=== PATIENT | female | born 1995 | race Two or more races ===

== ENCOUNTER 2025-07-15 13:21 | Emergency (ER) | payer MEDICAID ==
[~2025-07-15] VITALS: Ht 154.9 cm; Wt 94.0 kg
--- NOTE | 2025-07-15 14:55 | ED.PDOC ---
Musculoskeletal HPI Comments 29-year-old female that presents to the ED for chief complaint of right ankle pain. Patient states that she has been having right ankle pain after twisting it flung getting out of bed. Patient states she twisted her ankle on Monday and states in resulted in pressure radiating to her leg and includes her foot. Patient states since the injury she has been unable to bend her foot up or down and has been having pain around the ankle in the Achilles area. The patient otherwise has a history of a small ankle fracture to the right ankle which occurred three years prior. Chief Complaint: Lower Extremity Time Seen by MD: 14:18 Reviewed Notes: Medications, Allergies Allergies: Coded Allergies: NO KNOWN ALLERGIES (Unverified , 07/15/25) Information Source: Patient Mode of Arrival: Ambulatory Brought in by: self Location: Right Extremity Location: Ankle Past Medical History PAST MEDICAL HISTORY: Denies Surgical History: Denies all surgeries DIRECTOR OF QUALITY IMPROVEMENT History: Denies all DIRECTOR OF QUAL[employer]OVEMENT Hx Family History Family History: Reviewed,noncontributory to illness Social History Smoker: Non-Smoker Alcohol: Denies ETOH Use Drugs: Denies Drug Use Lives In: Home Constitutional: denies: chills, diaphoresis, fatigue, fever, malaise, sweats, weakness, others EENTM: denies: blurred vision, double vision, ear bleeding, ear discharge, ear drainage, ear pain, ear ringing, eye pain, eye redness, hearing loss, mouth pa in, mouth swelling, nasal discharge, nose bleeding, nose congestion, nose pain, photophobia, tearing, throat pain, throat swelling, voice changes, others Respiratory: denies: cough, hemoptysis, orthopnea, SOB at rest, shortness of breath, SOB with excertion, stridor, wheezing, others Cardiovascular: denies: chest pain, dizzy spells, diaphoresis, Dyspnea on exertion, edema, irregular heart beat, left arm pain, lightheadedness, palpitations, PND, syncope, others Gastrointestinal: denies: abdomen distended, abdominal pain, blood streaked bowels, constipated, diarrhea, dysphagia, difficulty swallowing, hematemesis, melena, nausea, poor appetite, poor fluid intake, rectal bleeding, rectal pain, vomiting, others Genitourinary: denies: abnormal vagina bleeding, burning, dyspareunia, dysuria, flank pain, frequency, hematuria, incontinence, pain, , vagina discharge, urgency, others Neurological: denies: dizziness, fainting, headache, left sided numbness, left sided weakness, numbness, paresthesia, pre-existing deficit, right sided numbness, right sided weakness, seizure, speech problems, tingling, tremors, weakness, others Musculoskeletal: reports: joint pain, joint swelling; denies: back pain, gout, muscle pain, muscle stiffness, neck pain, others Integumetry: denies: bruises, change in color, change in hair/nails, dryness, laceration, lesions, lumps, rash, wounds, others Allergic/Immunocompromised: denies: Difficulty Healing, Frequent Infections, Hives, Itching, others Hematologic/Lymphatic: denies: anemia, blood clots, easy bleeding, easy bruising, swollen glands, others Endocrine: denies: excessive hunger, excessive sweating, excessive thirst, excessive urination, flushing, intolerance to cold, intolerance to heat, unexplained weight gain, unexplained weight loss, others Psychiatric: denies: anxiety, bipolar disorder, depression, hopeless, panic disorder, schizophrenia, sleepless, suicidal, others All Other Systems: Reviewed and Negative Physical Exam General Appearance: No Apparent Distress, Normal HEENT: Normal ENT Inspection, Pharynx Normal, TMs Normal Neck: Full Range of Motion, Non-Tender, Normal, Normal Inspection Respiratory: Chest Non-Tender, Lungs Clear, No Accessory Muscle Use, No Respiratory Distress, Normal Breath Sounds Cardiovascular: No Edema, No JVD, No Murmur, No Gallop, Normal Peripheral Pulses, Regular Rate/Rhythm Breast Exam: Deferred Gastrointestinal: No Organomegaly, Non Tender, No Pulsatile Mass, Normal Bowel Sounds, Soft Genitalia: Deferred Pelvic: Deferred Rectal: Deferred Extremities: Tender (Right foot and localized to the right ankle) Musculoskeletal : Apperance: Normal Neurologic: Alert, polymerization helper II-XII nml as Tested, No Motor Deficits, Normal Affect, Normal Mood, No Sensory Deficits Cerebellar Function: Normal Reflexes: Normal Skin: Dry, Normal Color, Warm Lymphatic: No Adenopathy Was a procedure done? Was a procedure done?: No Differential Diagnosis EXT Differential Diagnosis: Fracture, Sprain, Contusion, Strain, Neurovascular injury, Arthritis X-Ray, Labs, Meds, VS Vital Signs Date Time Temp Pulse Resp B/P (MAP) Pulse Ox O2 Delivery O2 Flow Rate FiO2 07/15/25 13:26 98.5 67 16 128/[address] [address] Ph: [phone] DIAGNOSTIC IMAGING Diagnostic Imaging Report : [id number] Signed PATIENT: MARIELY HERNANDEZ ACCT: [id number] UNIT: [id number] : 1995 LOC: ER ROOM / BED: / AGE / SEX: 29 / F ADM STATUS: REG ER SERVICE 20 ORDERING PHYSICIAN: TA YE BRIQUETTING MACHINE OPERATOR PROCEDURE(s): RFOOT - R FOOT 3 VIEW XRAY REASON: R/o fracture ORDER NUMBER(s): [id number], ACCESSION NUMBER(s): [id number] XY R FOOT 3 VIEW XRAY, INDICATION: R/o fracture TECHNICAL DATA: Frontal, oblique and lateral views were obtained of the right foot. COMPARISON: XY R FOOT 3 VIEW XRAY on DOS: 02/11/25 FINDINGS: No fracture is identified. Joint spaces are maintained. Alignment is anatomic. The hallux sesamoids appear normal. Soft tissues are within normal limits. IMPRESSION: No acute fracture or dislocation of the right foot. ATED BY: BENJAMIN VERMA MD DICTATED DATE/TIME: 07/15/251518 SIGNED BY: BENJAMIN VERMA MD SIGNED DATE/TIME: 07/15/251518 CC: [address] [address] Ph: [phone] DIAGNOSTIC IMAGING Diagnostic Imaging Report : [id number] Signed PATIENT: MARIELY HERNANDEZ ACCT: [id number] UNIT: [id number] : 1995 LOC: ER ROOM / BED: / AGE / SEX: 29 / F ADM STATUS: REG ER SERVICE 20 ORDERING PHYSICIAN: TA YE BRIQUETTING MACHINE OPERATOR PROCEDURE(s): RANKL - R ANKLE 3 VIEW REASON: R/o fracture ORDER NUMBER(s): [id number], ACCESSION NUMBER(s): [id number] CLINICAL INDICATION: R/o fracture TECHNIQUE: 3 radiographic views of the right ankle were obtained. Comparison: None FINDINGS/IMPRESSION: There is questionable small nondisplaced avulsion fracture from the tip of the distal lateral malleolus with associated mild ankle soft tissue edema. No dislocation. ATED BY: JEN BARRIOS DO DICTATED DATE/TIME: 07/15/251518 SIGNED BY: JEN BARRIOS DO SIGNED DATE/TIME: 07/15/251518 CC: X-Ray, Labs, Meds, VS Comment Patient arrives alert and oriented, ABC's intact, afebrile, vital signs stable, saturating well in room air Diagnostic imaging ordered by me and results interpreted by radiology : Right foot x-ray, IMPRESSION: No acute fracture or dislocation of the right foot. right ankle x-ray FINDINGS/IMPRESSION: There is questionable small nondisplaced avulsion fracture from the tip of the distal lateral malleolus with associated mild ankle soft tissue edema. No dislocation. Labs in the ED showed (pertinent+ and then pertinent-) Patient was given:_. Tolerated medications with no adverse reaction. Additional MDM Review of External, Non-ED records: External records reviewed. Discussion with independent historian (EMS, family) history obtained from the patient/parents (if applicable) at bedside Chronic conditions affecting care: None Social determinants of health affecting care: None Consideration of admission (observation or admission): I considered escalation of care to admission for this patient, however given the reassuring workup, the patient is safe for outpatient management. Discussion with the Radiology: No Tests considered but not performed: Prescription medication considered but not given: 12 lead EKG interpretation: Time of 1ST Reevaluation: 14:50 Reevaluation 1ST: Unchanged Patient Education/Counseling: Diagnosis, Treatment Family Education/Counseling: No Family Present Departure 1 Departure Time of Disposition: 15:48 Impression: Primary Impression: Lateral malleolar fracture Qualified Codes: S82.64XA - Nondisplaced fracture of lateral malleolus of right fibula, initial encounter for closed fracture Disposition: 01 HOME / SELF CARE / HOMELESS Condition: Stable e-Prescriptions Ibuprofen Micronized (Ibuprofen) 800 Mg Tab 800 MG PO TID for 10 Days, #30 TAB 0 Refills Prov: TA YE NP 07/15/25 Critical Care Note Critical Care Time?: No Stability Stability form required: No Heart Score Heart Score: Heart Score Response (Comments) Value History N/A 0 EKG N/A 0 Age N/A 0 Risk Factors N/A 0 Troponin N/A 0 Total 0 I personally scribed for TA YE NP ([email or web address]) on 07/15/25 at 14:55. Electronically submitted by Chandni Kumar ([place]). I personally scribed for TA YE NP (SISI) on 07/15/25 at 15:37. Electronically submitted by Chandni Kumar ([place]). TA YE NP Jul 15, 2025 14:55
--- NOTE | 2025-07-15 15:21 | DVH ---
XY R FOOT 3 VIEW XRAY, INDICATION: R/o fracture TECHNICAL DATA: Frontal, oblique and lateral views were obtained of the right foot. COMPARISON: XY R FOOT 3 VIEW XRAY on DOS: 02/11/25 FINDINGS: No fracture is identified. Joint spaces are maintained. Alignment is anatomic. The hallux sesamoids appear normal. Soft tissues are within normal limits. IMPRESSION: No acute fracture or dislocation of the right foot.
--- NOTE | 2025-07-15 15:21 | DVH ---
CLINICAL INDICATION: R/o fracture TECHNIQUE: 3 radiographic views of the right ankle were obtained. Comparison: None FINDINGS/IMPRESSION: There is questionable small nondisplaced avulsion fracture from the tip of the distal lateral malleolus with associated mild ankle soft tissue edema. No dislocation.
[2025-07-15] MEDS ORDERED: IBUP-1455 PO (15:48)
[2025-07-15 16:00] VITALS: BP 132/80; PULSE 72; RESP 16; TEMP 98.2; O2SAT 98
== END 2025-07-15 16:05 | disposition home or self-care (01) ==
LOC: ER 13:21
DX: S82.64XA Nondisplaced fracture of lateral malleolus of right fibula, initial encounter for closed fracture (principal); X50.1XXA Overexertion from prolonged static or awkward postures, initial encounter; Y93.89 Activity, other specified; Y92.89 Other specified places as the place of occurrence of the external cause; Y99.8 Other external cause status
CPT/HCPCS: 29515; 73610; 73630